=== PATIENT | male | born 1960 | race Two or more races ===

== ENCOUNTER 2020-11-18 07:22 | Day surgery (SDC) | payer OTHER ==
[2020-11-18] MEDS ORDERED: PROPOFOL 20 ML ONE ×6 (07:38)
[2020-11-18] MEDS ORDERED: LIDOCAINE HCL/PF 2% SDV 5ML VIAL ONE (07:44)
[2020-11-18] MEDS ORDERED: METOPROLOL TARTRATE 5 MG/5 ML VIAL ONE (08:07)
[2020-11-18 08:08] VITALS: BMI 31.8
[2020-11-18 08:58] VITALS: TEMP 98
[2020-11-18 09:17] VITALS: BP 160/85; PULSE 80
== END 2020-11-18 09:15 | disposition home or self-care (01) ==
LOC: FASU-ENDO 07:22
PROVIDERS: ATTEND Internal Medicine Gastroenterology
PROC: 0DB98ZX Excision of Duodenum, Via Natural or Artificial Opening Endoscopic, Diagnostic (ICD-10-PCS; 2020-11-18)
PROC: 0DB78ZX Excision of Stomach, Pylorus, Via Natural or Artificial Opening Endoscopic, Diagnostic (ICD-10-PCS; 2020-11-18)
PROC: 0DJD8ZZ Inspection of Lower Intestinal Tract, Via Natural or Artificial Opening Endoscopic (ICD-10-PCS; principal; 2020-11-18 08:14)
DX: Z12.11 Encounter for screening for malignant neoplasm of colon (principal); K29.70 Gastritis, unspecified, without bleeding; B96.81 Helicobacter pylori [H. pylori] as the cause of diseases classified elsewhere; K57.30 Diverticulosis of large intestine without perforation or abscess without bleeding; K92.1 Melena
CPT/HCPCS: 43239; G0121; 88305-TC; 88342-TC

== ENCOUNTER 2023-06-01 04:22 | Day surgery (SDC) | payer OTHER ==
[2023-05-28 12:56] VITALS: BMI 33.3
[~2023-06-01 04:22] MED LIST: BUPIVACAINE HCL/PF 0.25% (2.5MG/ML) 10 ML VIAL IJ ONE
[2023-06-01] MEDS ORDERED: ONDANSETRON 4 MG/2 ML VIAL IVPUSH PRN (11:12)
[2023-06-01] MEDS ORDERED: PROMETHAZINE HCL 25 MG/1 ML VIAL IVPB PRN (11:12)
[2023-06-01] MEDS ORDERED: oxyCODONE HCL 5 MG TABLET PO PRN (11:12)
[2023-06-01] MEDS ORDERED: LACTATED RINGERS SOLUTION 1,000 ML IV SCH (11:15)
[2023-06-01] MEDS ORDERED: BUPIVACAINE HCL/PF 0.25% (2.5MG/ML) 10 ML VIAL ONE (11:19)
[2023-06-01] MEDS ORDERED: HEPARIN NA (PORCINE) 5,000 UNITS/ML 1ML VIAL ONE (11:19)
[2023-06-01] MEDS ORDERED: cefOXitin SODIUM 2 GM VIAL (RESTRICTED TO ID) IVPB ONE ×2 (11:19→12:54)
[2023-06-01] MEDS ORDERED: PROPOFOL 20 ML ONE ×2 (12:13→14:42)
[2023-06-01] MEDS ORDERED: ROCURONIUM BROMIDE 50 MG/5 ML SYRINGE ONE (12:13)
[2023-06-01] MEDS ORDERED: MIDAZOLAM HCL 2 MG/2 ML SINGLE DOSE VIAL ONE (12:13)
[2023-06-01] MEDS ORDERED: ONDANSETRON 4 MG/2 ML VIAL ONE (12:37)
[2023-06-01] MEDS ORDERED: DEXAMETHASONE SOD PHOSPHATE 4 MG/1 ML VIAL ONE (12:37)
[2023-06-01] MEDS ORDERED: SODIUM CHLORIDE 0.9% P/F 10 ML VIAL IJ ONE (12:38)
[2023-06-01] MEDS ORDERED: ACETAMINOPHEN INJECTION 100 ML IVPB ONE (12:51)
[2023-06-01] MEDS ORDERED: BUPIVACAINE HCL/PF 0.25% (2.5MG/ML) 10 ML VIAL IJ ONE (13:03)
[2023-06-01] MEDS ORDERED: SUGAMMADEX SODIUM 200 MG/2 ML VIAL ONE (14:45)
[2023-06-01 16:49] VITALS: RESP 18
[2023-06-01 17:37] VITALS: BP 131/80; PULSE 86; TEMP 97.9
== END 2023-06-01 17:30 | disposition home or self-care (01) ==
LOC: JASU-SURG 04:22
PROVIDERS: ATTEND Surgery
PROC: 8E0W4CZ Robotic Assisted Procedure of Trunk Region, Percutaneous Endoscopic Approach (ICD-10-PCS; 2023-06-01)
PROC: 0YU64JZ Supplement Left Inguinal Region with Synthetic Substitute, Percutaneous Endoscopic Approach (ICD-10-PCS; principal; 2023-06-01 10:00)
DX: K40.90 Unilateral inguinal hernia, without obstruction or gangrene, not specified as recurrent (principal)
CPT/HCPCS: 49650; S2900; 94760; C1781; J1644